=== PATIENT | male | born 1960 | race African-American/Black ===

== ENCOUNTER 2017-12-17 16:43 | Emergency (ER) | payer SELFPAY ==
[~2017-12-17 16:43] MED LIST: ISOVUE-370 76%-LOCM 1 ML ONE
[2017-12-17 17:38] LABS: #Basophils 0.1 thou/uL (0.0-0.2); #Eosinphils 0.2 thou/uL (0.0-0.7); #Lymphocytes 1.6 thou/uL (1.20-3.40); #Monocytes 0.4 thou/uL (0.11-0.59); %Basophils 0.7 % (0.0-1.0); %Eosinophils 3.2 % (0.0-10.0); %Lymphocytes 22.3 % (21.0-51.0); %Monocytes 5.7 % (0.0-10.0); %Neutrophils 68.1 % (42.0-75.0); Hemoglobin 17.4 g/dL (14.0-18.0); Mean Corpuscular HGB CONC 32.8 g/dL (32.0-36.0); Mean Corpuscular Hemoglobin 30.3 pg (27.0-31.0); Mean Corpuscular Volume 92.5 fl (80.0-94.0); Mean Platelet Volume 8.2 fL (7.4-10.4); Platelet Count 173 thou/uL (130-400); RBC Distribution Width 12.3 % (11.5-14.5); Red Blood Cell (RBC) Count 5.74 mill/uL (4.70-6.10); White Blood Cell (WBC) Count 7.3 thou/uL (4.8-10.8)
[2017-12-17 17:56] LABS: Anion Gap 11 mmol/L (10-20); BUN (Urea Nitrogen) 16 mg/dL (8.4-25.7); CK (CPK) 347 U/L (30-200); Calc. Creatinine Clearance 0 mL/min (70-130); Calcium 9.3 mg/dL (7.8-10.44); Carbon Dioxide 26 mmol/L (22-29); Chloride 106 mmol/L (98-107); Estimated GFR-MDRD 56; Glucose 128 mg/dL (70-105); Potassium 4.6 mmol/L (3.5-5.1); Sodium 138 mmol/L (136-145)
--- NOTE | 2017-12-17 18:35 | RAD ---
CHEST ONE VIEW: HISTORY: Syncope. COMPARISON: None. FINDINGS: The lungs are without focal air space consolidation, pneumothorax, or effusion. There is asymmetric increased depth of the right lateral costophrenic sulcus relative to the left, which may be chronic i n nature. No pneumothorax is appreciated. The cardiac silhouette and mediastinal contour appears within normal limits. There appears to be pauline e linear atelectasis in the medial aspect of the right lung base. IMPRESSION: No acute intrathoracic abnormality. POS: [facility]
[2017-12-17] MEDS ORDERED: diphenhydrAMINE 50 MG/ML VIAL ONE (18:58)
[2017-12-17] MEDS ORDERED: Dexamethasone 4 mg/ml Vial ONE (18:58)
--- NOTE | 2017-12-17 19:07 | CT ---
CT BRAIN WITHOUT CONTRAST: HISTORY: Syncope. Dizziness. COMPARISON: None. FINDINGS: There is increased density within the left transverse sinus, as well as along the posterior falx, exi ting into the deep cerebral vein. No acute hemorrhage. No infarct. No midline shift or mass effect . The calvarium is intact. IMPRESSION: Asymmetric increased density within the left transverse sinus, as well as the posterior falx, extendi ng into a deep draining vein. This may reflect thrombosis versus hypovolemia. CT venogram may be celestino eficial. CODE CR Dr. Carlton POS: [facility]
--- NOTE | 2017-12-17 20:49 | CT ---
CT ANGIOGRAM BRAIN: CT VENOGRAM BRAIN: HISTORY: Abnormal findings on the noncontrast CT. TECHNIQUE: CT angiogram and CT venogram of the brain were performed after the intravenous administration of cont rast, and 3D rendering was provided. FINDINGS: The [place] was patent. The internal carotid arteries were present. There was atrophy of the right transverse sinus, which gives the increased density appearance. No th rombosis. The superior sagittal sinus is intact. IMPRESSION: Atrophic right transverse sinus, which gives increased density to the left transverse sinus on the CT brain. No thrombosis. Patent arterial vasculature. POS: [facility]
== END 2017-12-17 20:51 | disposition home or self-care (01) ==
LOC: ERS 16:43
DX: R55 Syncope and collapse (principal); L50.0 Allergic urticaria; T50.8X5A Adverse effect of diagnostic agents, initial encounter; F14.10 Cocaine abuse, uncomplicated; F17.210 Nicotine dependence, cigarettes, uncomplicated
CPT/HCPCS: 36415; 70450; 70496; 71045; 80048; 82550; 85025; 93005; 96361; 96374; 96375; 99406; J1100; J1200

== ENCOUNTER 2018-10-16 18:51 | Emergency (ER) | payer SELFPAY ==
--- NOTE | 2018-10-16 21:29 | RAD ---
PA AND LATERAL CHEST: 10/16/18 HISTORY: Cough and congestion. Heart size and mediastinum are within normal limits. Lungs appear clear of infiltrates. No bony findi ngs. IMPRESSION: No active intrathoracic disease. POS: [facility]
== END 2018-10-16 21:50 | disposition home or self-care (01) ==
LOC: ERS 18:51
DX: B34.9 Viral infection, unspecified (principal); F17.210 Nicotine dependence, cigarettes, uncomplicated
CPT/HCPCS: 71046; 87804

== ENCOUNTER 2020-10-21 17:02 | Emergency (ER) | payer OTHER, SELFPAY | END 2020-10-21 17:44 | disposition home or self-care (01) | LOC: ERS 17:02 | DX: R43.0 Anosmia (principal); Z20.822 Contact with and (suspected) exposure to COVID-19; F17.210 Nicotine dependence, cigarettes, uncomplicated | CPT/HCPCS: 87635; 99283; U0003; U0005 ==

== ENCOUNTER 2023-06-14 15:38 | Emergency (ER) | payer OTHER, SELFPAY | END 2023-06-14 18:50 | disposition home or self-care (01) | LOC: ERS 15:38 | DX: Z20.822 Contact with and (suspected) exposure to COVID-19 (principal); F17.210 Nicotine dependence, cigarettes, uncomplicated | CPT/HCPCS: 87635; 99282 ==